=== PATIENT | female | born 1945 | race Caucasian/White ===

== ENCOUNTER 2019-06-20 13:11 | Outpatient (CLI) | payer OTHER, SELFPAY ==
--- NOTE | ~2019-06-20 | CT_ITS ---
EXAMINATION: CT abdomen pelvis wo con EXAM DATE: 06/20/2019 13:35 INDICATION: Right-sided kidney cancer. TECHNIQUE: Spiral CT of the abdomen and pelvis was performed without contrast. Axial, coronal and sag ittal images were reviewed. The dose-length product (DLP) for this examination was 1330.84 mGy-cm. The exposure was tailored according to patient size (auto mA exposure control), and iterative reconst ruction (ASIR) was used as additional dose reduction technique. Comparison is made to prior examinati on from 11/24/2018. FINDINGS: There is a right renal midpole mass measuring 5.6 x 4.8 x 6.2 cm, does not appear significa nt changed compared to prior study. Mild bilateral renal atrophy. There is no nephrolithiasis or hydr onephrosis. The uterus is not identified and has likely been surgically resected. The bladder is u nremarkable. The liver, spleen, adrenal glands and pancreas are unremarkable. There are cholecystec davis clips. There is no retroperitoneal or pelvic lymphadenopathy. Small umbilical fat-containing hernia. The appendix is normal. The stomach and small bowel are unremarkable. There is mild scattered coloni c diverticulosis. There is no adjacent inflammatory change to suggest diverticulitis. There is expec claudia amount of colonic stool. No free intraperitoneal gas. The heart is normal in size. There are no pericardial or pleural effusions. There is a right middle lobe 6 mm nodule, left lower lobe 5 mm nodule unchanged. There are no osteoblastic or osteolytic lesions identified. IMPRESSION: 1. Right renal mass most likely renal cell cancer, unchanged in size. 2. Right and left basilar nodules, unchanged. Granulomas or metastatic. Reviewed, dictated and finalized at location A.
== END 2019-06-20 13:12 | disposition home or self-care (01) ==
PROVIDERS: PCP Family Medicine; Visit Provider Urology
DX: D41.01 Neoplasm of uncertain behavior of right kidney (principal); R91.8 Other nonspecific abnormal finding of lung field
CPT/HCPCS: 74176

== ENCOUNTER 2020-01-04 13:38 | Outpatient (CLI) | payer OTHER, SELFPAY ==
--- NOTE | ~2020-01-04 | CT_ITS ---
EXAMINATION: CT abdomen pelvis wo con DATE: 01/04/2020 14:18 INDICATION: Right kidney cancer TECHNIQUE: Computed tomography (CT) of the abdomen and pelvis was performed without intravenous contr ast. The dose-length product (DLP) was 1223.15 mGy-cm. Automated exposure control and iterative recon struction technique were employed. COMPARISON: 06/20/2019, 11/24/2018 FINDINGS: Stable 6 mm pulmonary nodules are present in the right middle lobe and the left lower lobe. There are also stable nodules of the right lower lobe measuring 5 mm and 3 mm. No new nodules are id entified in the visualized lung bases. The heart size is normal. The gallbladder is surgically absent . The liver, spleen, pancreas, and adrenal glands are normal. There is a small sliding hiatal hernia. An approximately 5.3 x 5.2 cm mass of the right kidney demonstrates slow increase in size since the 2018 comparison. The left kidney is unremarkable. No pathologically enlarged abdominal or pelvic lymp h nodes are identified. There is no free intraperitoneal gas or evidence of bowel obstruction. A fat- containing umbilical hernia is noted. There is mild lumbar spondylosis. IMPRESSION: 1. Right kidney mass with slow increase in size, consistent with renal cell carcinoma. 2. Stable nodules of the visualized lung bases, consistent with granulomatous disease versus metastat ic disease. Reviewed, dictated and finalized at location A. IMPRESSION: 1. Right kidney mass with slow increase in size, consistent with renal cell car cinoma. 2. Stable nodules of the visualized lung bases, consistent with granulomatous d isease versus metastatic disease.
== END 2020-01-04 13:39 | disposition home or self-care (01) ==
PROVIDERS: PCP Family Medicine; Visit Provider Urology
DX: D41.01 Neoplasm of uncertain behavior of right kidney (principal)
CPT/HCPCS: 74176

== ENCOUNTER 2020-07-09 17:21 | Outpatient (CLI) | payer OTHER, SELFPAY ==
--- NOTE | ~2020-07-09 | CT_ITS ---
EXAMINATION: CT abdomen pelvis wo con DATE: 07/09/2020 17:45 INDICATION: Right kidney neoplasm. TECHNIQUE: Computed tomography (CT) of the abdomen and pelvis was performed without intravenous contr ast. Automated exposure control and iterative reconstruction technique were employed. The dose-length product was 1228.68 mGy-cm. COMPARISON: CT abdomen and pelvis 01/04/2020, 06/17/18, ultrasound kidneys 06/17/2018 FINDINGS: The visualized portions of the lung bases demonstrate mild emphysema. There is mild bronchi ectasis bilaterally. There are 3 nodules in the lungs measuring up to 6 mm in right middle lobe. No p leural effusion. The heart size is normal. No pericardial effusion. The liver, spleen, pancreas, and adrenal glands are normal. There are changes of cholecystectomy. There is a 5.2 cm mass in right kidn ey. There is a 10 mm mass in left kidney. There is diverticulosis of the colon without evidence of di verticulitis. There are no dilated loops of bowel. The appendix is normal. There are no pathologicall y enlarged lymph nodes. There is no free intraperitoneal fluid. There is mild lumbar spondylosis. IMPRESSION: 1. Stable 5.2 cm mass in right kidney with vascular flow on the prior ultrasound, consistent with evin al cell carcinoma. 2. Stable 10 mm mass in left kidney, which may be a hemorrhagic cyst or less likely a neoplasm. 3. Pulmonary nodules measuring up to 6 mm, stable from 07/21/2018, consistent with granulomatous disea se or less likely metastatic disease. Reviewed, dictated and finalized at location A. IMPRESSION: 1. Stable 5.2 cm mass in right kidney with vascular flow on the prior ultrasoun d, consistent with renal cell carcinoma. 2. Stable 10 mm mass in left kidney, which may be a hemorrhagic cyst or less li shari a neoplasm. 3. Pulmonary nodules measuring up to 6 mm, stable from 07/21/2018, consistent wi th granulomatous disease or less likely metastatic disease.
== END 2020-07-09 17:22 | disposition home or self-care (01) ==
PROVIDERS: PCP Family Medicine; Visit Provider Urology
DX: D41.01 Neoplasm of uncertain behavior of right kidney (principal); R91.8 Other nonspecific abnormal finding of lung field; D41.02 Neoplasm of uncertain behavior of left kidney
CPT/HCPCS: 74176

== ENCOUNTER 2021-04-22 20:36 | Emergency (ER) | payer OTHER, SELFPAY ==
[2021-04-22 20:45] VITALS: BP 120/56; PULSE 94; RESP 20; TEMP 36.4; O2SAT 98
--- NOTE | 2021-04-22 21:22 | PC.NURSE ---
Sitting upright in wheelchair, no acute distress.
[2021-04-22 23:05] VITALS: BP 137/69; PULSE 92; RESP 20; O2SAT 94
--- NOTE | 2021-04-22 23:05 | ED.GENADULT ---
HPI - General Adult General Chief complaint: Weakness Stated complaint: COVID + INCREASING SOB Time Seen by Provider: 04/22/21 22:54 History of Present Illness HPI narrative: Patient 76-year-old female presents emergency department with chief complaint of I feel weak. The patient reports she was diagnosed with COVID-19 about a week ago reports that she has not having shortness of breath not having chest pain not having fevers she does feels a little rundown like she needs just rest the patient reports her is hospitalized with COVID-19 reports she think she is actually not doing too bad compared to everyone else the patient reports that she talked to her children who recommended that she come to the emergency department for evaluation because she might need antibiotics for her COVID. Related Data Home Medications Medication Instructions Recorded Confirmed furosemide 40 mg PO DAILY 04/23/19 02/20/21 Allergies Allergy/AdvReac Type Severity Reaction Status Date / Time codeine Allergy Unknown Itching Verified 03/11/21 13:31 egg Allergy Unknown Difficulty Verified 03/11/21 13:31 Breathing NSAIDS (Non-Steroidal Allergy Unknown Itching Verified 03/11/21 13:31 Anti-Inflamma Penicillins Allergy Unknown Itching Verified 03/11/21 13:31 Sulfa (Sulfonamide Allergy Unknown Itching Verified 03/11/21 13:31 Antibiotics) Review of Systems Review of Systems: A 10 system review of systems was completed on the patient and is negative except for what is stated in the HPI. Nursing and ancillary documentation was reviewed. PMFSH Family History Family History Mother Family history of Alzheimer's disease Family history of diabetes mellitus in first degree relative Family history of cataracts Hypertension Diabetes mellitus Family history of Parkinson's disease Father Family history of diabetes mellitus in first degree relative Family history of glaucoma Hypertension Family history of congestive heart failure Family history of hearing loss Diabetes mellitus Sibling Family history of coronary artery disease Social History Social History Smoking status: Former smoker Second hand tobacco smoke exposure: No Alcohol intake: never Substance use: never Substance use type: does not use Gender identity (if verbalized by the patient): Female Sexual Orientation (if Verbalized by the Patient): Straight or Heterosexual Exam Narrative: GENERAL: Well-appearing, well-nourished, and in no acute distress. HEAD: Normocephalic, atraumatic. EYES: PERRLA and EOMI. ENT: Nares clear, no rhinorrhea or epistaxis. Mucous membranes moist. NECK: Supple. CHEST: Clear to auscultation. No respiratory distress. HEART: Regular rate and rhythm. No murmur heard. Normal peripheral pulses. ABDOMEN: Soft, nontender, nondistended, normal active bowel sounds. EXTREMITIES: Normal range of motion. No edema. SKIN: Warm, dry, no rash. NEURO: No focal deficits. Alert and oriented x3. PSYCH: Normal mood and affect. Course Course Emergency Course: Patient was able to ambulate in the emergency department without difficulty the patient's room air saturation stayed at 91% with ambulation. Vital Signs Vital signs: Vital Signs Temperature 36.4 C 04/22/21 20:45 Pulse Rate 94 04/22/21 20:45 Respiratory Rate 20 04/22/21 20:45 Blood Pressure 120/56 L 04/22/21 20:45 Pulse Oximetry 98 04/22/21 20:45 Temperature 36.4 C 04/22/21 20:45 Pulse Rate 100 04/22/21 23:08 Respiratory Rate 18 04/22/21 23:08 Blood Pressure 109/97 H 04/22/21 23:08 Pulse Oximetry 93 04/22/21 23:08 Medical Decision Making Vital Signs Vital Signs: Vital Signs Temperature 36.4 C 04/22/21 20:45 Pulse Rate 94 04/22/21 20:45 Respiratory Rate 20 04/22/21 20:45 Blood Pressure 120/56 L 04/22/21
[2021-04-22 23:06] VITALS: BP 133/95; PULSE 94; RESP 18; O2SAT 93
[2021-04-22 23:08] VITALS: BP 109/97; PULSE 100; RESP 18; O2SAT 93
[2021-04-23 00:11] VITALS: BP 118/61; PULSE 96; RESP 18; O2SAT 94
== END 2021-04-23 00:09 | disposition home or self-care (01) ==
LOC: ANHED 23:31
PROVIDERS: Emergency Provider Emergency Medicine; PCP Family Medicine
DX: U07.1 COVID-19 (principal); Z87.891 Personal history of nicotine dependence; Z79.4 Long term (current) use of insulin
CPT/HCPCS: 99281

== ENCOUNTER 2022-01-16 15:58 | Outpatient (CLI) | payer OTHER, SELFPAY ==
--- NOTE | ~2022-01-16 | XR_ITS ---
XR ankle RT min 3V, XR foot RT min 3V 01/16/2022 16:38 (accession [id number]), 01/16/2022 16:37 (accession [id number]) Indication: Right ankle and foot pain Procedure: 4 views right ankle and 4 views right foot Comparison: 12/15/2017 Findings: There is a transverse fracture base of the fifth metatarsal. There is a degenerative calcan eal enthesophyte. Ankle mortise intact. Moderate diffuse soft tissue swelling. Osteopenia. Talar dome is normal. Mild polyarticular osteoarthritis. Lisfranc joint intact. Impression: 1: Transverse nondisplaced fracture base of the right fifth metatarsal. Reviewed, dictated and finalized at location A. Impression: 1: Transverse nondisplaced fracture base of the right fifth metatarsal. Impression: 1: Transverse nondisplaced fracture base of the right fifth metatarsal.
== END 2022-01-16 15:59 | disposition home or self-care (01) ==
LOC: ANHIMG 16:07
PROVIDERS: PCP Family Medicine; Visit Provider Physician Assistant
DX: S92.354A Nondisplaced fracture of fifth metatarsal bone, right foot, initial encounter for closed fracture (principal); X58.XXXA Exposure to other specified factors, initial encounter
CPT/HCPCS: 73610; 73630

== ENCOUNTER 2022-03-04 18:49 | Emergency (ER) | payer OTHER, SELFPAY ==
[2022-03-04] VITALS (12 sets, daily range): BP systolic 118–165; BP diastolic 49–74; PULSE 92–115; RESP 16–27; TEMP 37.3–39.2; O2SAT 97–100
[2022-03-04 19:08] LABS: Glucose Point of Care 348 mg/dl (65-105)
[2022-03-04 20:08] LABS: Alanine Aminotransferase 13 U/L (6-35); Albumin Level 3.7 g/dL (3.5-5.1); Alkaline Phosphatase 102 U/L (38-126); Anion Gap 6 mmol/L (8-16); Aspartate Amino Transferase 19 U/L (14-36); Bilirubin,Total 1.2 mg/dL (0.2-1.3); Blood Urea Nitrogen 13 mg/dL (7-17); Calcium 8.6 mg/dL (8.4-10.2); Carbon Dioxide 26 mmol/L (22-30); Chloride 97 mmol/L (98-107); Estimated Glomerular Filt Rate 40; Glucose 342 mg/dL (65-110); Potassium 4.1 mmol/L (3.4-5.0); Sodium 129 mmol/L (137-145)
[2022-03-04 20:16] LABS: Basophils Percent Auto 0.3 % (0.2-1.2); Hematocrit 38.4 % (37.0-47.0); Hemoglobin 12.7 g/dL (12.0-15.0); Immature Granulocyte Absolute 0.04 K/mm3 (0.00-0.031); Immature Granulocyte Percent A 0.5 % (0-0.5); Immature Platelet Fraction Pct 6.5 % (0.9-11.2); Lymphocytes Absolute Auto 0.33 K/mm3 (0.9-3.2); Lymphocytes Percent Auto 3.8 % (18.3-44.2); Mean Corpuscular HGB Conc 33.1 g/dl (32-36); Mean Corpuscular Hemoglobin 28.9 pg (26-34); Mean Corpuscular Volume 87.5 fl (80-100); Mean Platelet Volume 11.5 fl (7.4-10.4); Monocytes Absolute Auto 0.6 K/mm3 (0.1-0.6); Monocytes Percent Auto 6.7 % (2.6-8.5); Neutrophils Absolute Auto 7.7 K/mm3 (1.3-6.7); Neutrophils Percent Auto 88.7 % (45.5-73.1); Platelet Count Result 133 k/mm3 (150-375); Red Blood Count 4.39 M/mm3 (4.2-5.4); Red Cell Distribution Width 13.7 % (11.5-14.5); White Blood Count 8.7 K/mm3 (4.5-10.0)
[2022-03-04 20:33] LABS: Platelet Estimate Decreased (Adequate)
[2022-03-04 20:34] LABS: Ovalocytes 1+ (NORMAL); Schistocytes None Seen (NORMAL)
[2022-03-04 20:47] LABS: Appearance Urine Slightly Cloudy (Clear); Bilirubin Urine Negative (Negative); Blood Urine Trace-lysed (Negative); Color Urine Yellow (Yellow); Glucose Urine UA 3+ mg/dL (Negative); Ketones Urine Trace mg/dL (Negative); Leukocyte Esterase Ur Trace LEU/UL (Negative); Nitrate Urine Positive (Negative); Protein Urine 1+ mg/dL (Negative); Specific Grav Ur 1.015 (1.001-1.035); pH Urine 5.5 (5.0-9.0)
[2022-03-04 20:50] LABS: Influenza A QL RT-PCR Negative (Negative); Influenza B QL RT-PCR Negative (Negative); SARS-CoV-2 RNA PCR Negative
[2022-03-04 20:52] LABS: Bacteria Urine 1+ /hpf; Mucus Urine Rare /lpf; RBC Urine 0-2 /hpf (0-2); Squamous Epithelial Cell Urine Rare /hpf (Few); WBC Urine 21-30 /hpf
[2022-03-04 20:53] LABS: Add Urine Microscopic? YES
--- NOTE | 2022-03-04 21:18 | ED.AMS ---
HPI - Altered Mental Status General Chief Complaint: Altered Mental Status Stated Complaint: ALT MENTAL STATUS THIS AFTERNOON Time Seen by Provider: 03/04/22 19:33 History of Present Illness HPI narrative: 76-year-old female presenting to the emergency department for evaluation of mental status and increased sleepiness. Patient states that yesterday she was feeling weak. Family states that earlier in the day she had some minor confusion that they now feel is improving. Patient denies any associated chest pain or shortness of breath. Patient denies any associated nausea vomiting diarrhea. Patient denies any abdominal pain. Patient also denies any pain with urination. Related Data Home Medications Medication Instructions Recorded Confirmed furosemide 40 mg tablet 40 mg PO DAILY 04/23/19 01/30/22 Allergies Allergy/AdvReac Type Severity Reaction Status Date / Time codeine Allergy Unknown Itching Verified 02/20/22 15:05 egg Allergy Unknown Difficulty Verified 02/20/22 15:05 Breathing hydrocodone Allergy Unknown Itching Verified 02/20/22 15:05 NSAIDS (Non-Steroidal Allergy Unknown Itching Verified 02/20/22 15:05 Anti-Inflamma Penicillins Allergy Unknown Itching Verified 02/20/22 15:05 Sulfa (Sulfonamide Allergy Unknown Itching Verified 02/20/22 15:05 Antibiotics) Review of Systems Review of Systems: CONSTITUTIONAL: See HPI EYES: Denies visual changes, redness, or discharge. ENT: Denies rhinorrhea, congestion, sore throat, or otalgia. CARDIOVASCULAR: Denies chest pain, palpitations, or edema. RESPIRATORY: Denies cough or dyspnea. GASTROINTESTINAL: Denies abdominal pain, nausea, vomiting, or diarrhea. GENITOURINARY: Denies dysuria or hematuria. SKIN: Denies rash or itching. MUSCULOSKELETAL: Denies back pain, joint pain, or myalgia. NEUROLOGIC: Denies headache, numbness, or weakness. [facility] Past Medical History Medical History Acute cystitis without hematuria Cellulitis of left leg Chronic kidney disease, stage III (moderate) Depression Essential hypertension Gout History of bruising easily History of stress test Hyperlipidemia, unspecified Long-term insulin use Major depressive disorder, single episode, moderate Non-pressure chronic ulcer of skin of other sites with unspecified severity Other psoriatic arthropathy Peripheral vascular disease Psoriasis Psoriatic arthropathy Pure hypercholesterolemia Renal cell carcinoma Renal insufficiency, mild Shingles (herpes zoster) polyneuropathy Type 2 diabetes mellitus with hyperglycemia Ulcer of left lower extremity, limited to breakdown of skin Unspecified osteoarthritis, unspecified site Unstable gait Venous insufficiency of both lower extremities Venous stasis ulcer Vitamin D deficiency Surgical History Surgical History History of cholecystectomy History of knee surgery right knee Family History Family History Mother Family history of Alzheimer's disease Family history of diabetes mellitus in first degree relative Family history of cataracts Hypertension Diabetes mellitus Family history of Parkinson's disease Father Family history of diabetes mellitus in first degree relative Family history of glaucoma Hypertension Family history of congestive heart failure Family history of hearing loss Diabetes mellitus Sibling Family history of coronary artery disease Social History Social History Smoking status: Never smoker Second hand tobacco smoke exposure: No Alcohol intake: never Substance use: never Substance use type: does not use Lack of Transportation: No Lack of Food: Never True Current Housing: I Have Housing Concerned About Future Housing: No Difficulty Paying Gas/Electric Bills
[2022-03-04] MEDS: levoFLOXacin 500 MG/D5W 100 ML 500 MG/100 ML BAG 100 MG IVPB (22:23)
--- NOTE | 2022-03-04 22:56 | PC.NURSE ---
Assumed pt care from Cindy Meyers RN
== END 2022-03-04 23:45 | disposition home or self-care (01) ==
PROVIDERS: Emergency Provider Emergency Medicine; PCP Family Medicine
DX: N39.0 Urinary tract infection, site not specified (principal); Z20.822 Contact with and (suspected) exposure to COVID-19; I12.9 Hypertensive chronic kidney disease with stage 1 through stage 4 chronic kidney disease, or unspecified chronic kidney disease; E11.22 Type 2 diabetes mellitus with diabetic chronic kidney disease; N18.30 Chronic kidney disease, stage 3 unspecified; F32.9 Major depressive disorder, single episode, unspecified; Z79.4 Long term (current) use of insulin; E78.5 Hyperlipidemia, unspecified; M19.90 Unspecified osteoarthritis, unspecified site
CPT/HCPCS: 36415; 51701; 80053; 81001; 82948; 85025; 85055; 87040; 87077; 87086; 87186; 87636; 96365; 96375; 99284; J0131; J1956

== ENCOUNTER 2022-09-24 15:44 | Outpatient (CLI) | payer OTHER, SELFPAY ==
--- NOTE | ~2022-09-24 | US_ITS ---
Thyroid ultrasound. Clinical History: Goiter Findings: Real-time sonography of the thyroid gland was performed. The right lobe measures 4.5 x 2.9 x 2.9 cm. The left lobe measures 3.6 x 1.5 x 1.3 cm. The isthmus is 4 mm in AP diameter. There is a solid, heterogeneous, predominantly hyperechoic nodule in the right thyroid lobe measuring 3.3 x 3.6 x 2.5 cm. There is a 5 mm cystic nodule at the left upper pole. There is a 1.6 x 0.7 x 1.1 cm hypoechoic circum scribed nodule at the left midpole with probable punctate foci of hyperechogenicity. Impression: 3.6 cm TR-3 lesion in the right thyroid lobe. FNA recommended to establish a histologic diagnosis giv en size. 1.6 cm TR-5 nodule in the left thyroid lobe. FNA recommended to establish a histologic diagnosis. Reviewed, dictated and finalized at [facility]. Impression: 3.6 cm TR-3 lesion in the right thyroid lobe. FNA recommended to establish a hi stologic diagnosis given size. 1.6 cm TR-5 nodule in the left thyroid lobe. FNA recommended to establish a his tologic diagnosis.
== END 2022-09-24 15:45 | disposition home or self-care (01) ==
LOC: ANHIMG 18:18
PROVIDERS: PCP Family Medicine; Visit Provider Internal Medicine Endocrinology, Diabetes & Metabolism
DX: E04.9 Nontoxic goiter, unspecified (principal)
CPT/HCPCS: 76536

== ENCOUNTER 2023-11-06 16:58 | Outpatient (CLI) | payer OTHER, SELFPAY ==
--- NOTE | ~2023-11-06 | US_ITS ---
EXAMINATION: US renal BI DATE: 11/06/2023 18:16 INDICATION: Known renal cell carcinoma TECHNIQUE: Multiple grayscale and Doppler ultrasound images of the kidneys were obtained. COMPARISON: CT abdomen pelvis 07/09/2020 FINDINGS: The right kidney measures 12.1 x 7.3 x 5.3 cm. The left kidney measures 9.4 x 4.6 x 4.2 cm. The kidne ys demonstrate normal parenchymal echogenicity. 6.7 cm right inferior pole renal mass. Mostly anechoi c 1.2 cm left renal cyst with small area of septation/wall thickening anteriorly. There is no hydrone phrosis. The bladder is normal. IMPRESSION: 6.7 cm right inferior pole mass. The left renal mass described in the prior CT is unchanged and appears mostly anechoic, likely resolv ing hemorrhagic or proteinaceous cyst. Attention on follow-up examinations. Reviewed, dictated and finalized at location K. IMPRESSION: 6.7 cm right inferior pole mass. The left renal mass described in the prior CT is unchanged and appears mostly a nechoic, likely resolving hemorrhagic or proteinaceous cyst. Attention on follo w-up examinations.
== END 2023-11-06 16:59 | disposition home or self-care (01) ==
PROVIDERS: PCP Family Medicine; Visit Provider Urology
DX: D41.01 Neoplasm of uncertain behavior of right kidney (principal)
CPT/HCPCS: 76775

== ENCOUNTER 2023-11-09 17:08 | Outpatient (CLI) | payer OTHER, SELFPAY ==
--- NOTE | ~2023-11-09 | US_ITS ---
EXAMINATION: US thyroid DATE: 11/09/2023 18:14 INDICATION: Nontoxic single thyroid nodule TECHNIQUE: Multiple ultrasound images of the thyroid were obtained. COMPARISON: None. FINDINGS: The right thyroid lobe measures 4.4 x 2.7 x 3.1 cm. The left thyroid lobe measures 3.3 x 1.3 x 1.2 c m. Thyroid isthmus measures 4-5 mm in thickness. 3.0 x 2.7 x 3.2 cm wider than tall solid isoechoic h ypoechoic nodule with lobular margins and without echogenic foci (TI-RADS 4, moderately suspicious , FNA if >=1.5 cm, annual followup is >=1 cm) in the right thyroid lobe. This is decreased in size sinc e the prior study at which time it measured 3.6 x 3.3 x 2.5 cm. No significant change in a 1.5 cm wid er than tall solid very hypoechoic nodules with tiny echogenic foci in the left thyroid lobe (TI-RADS 5, highly suspicious , FNA if >=1.0 cm, annual followup is >0.5 cm). 5 mm TI-RADS 1 cystic nodule in the left thyroid lobe. IMPRESSION: 1. Multinodular goiter. Recommend ultrasound-guided biopsy of the 1.5 cm TI RADS 5 left thyroid nodul e and would also consider ultrasound guided biopsy of the 3.2 cm TI RADS 4 nodule despite the apparen t slight interval decrease in size. Reviewed, dictated and finalized at location A. IMPRESSION: 1. Multinodular goiter. Recommend ultrasound-guided biopsy of the 1.5 cm TI RAD S 5 left thyroid nodule and would also consider ultrasound guided biopsy of the 3.2 cm TI RADS 4 nodule despite the apparent slight interval decrease in size.
== END 2023-11-09 17:09 | disposition home or self-care (01) ==
PROVIDERS: PCP Family Medicine; Visit Provider Internal Medicine Endocrinology, Diabetes & Metabolism
DX: E04.2 Nontoxic multinodular goiter (principal)
CPT/HCPCS: 76536

== ENCOUNTER 2024-09-23 14:01 | Outpatient (CLI) | payer OTHER, SELFPAY ==
--- NOTE | ~2024-09-23 | US_ITS ---
Thyroid ultrasound. Clinical History: Type 2 diabetes COMPARISON: 11/09/2023 Findings: Real-time sonography of the thyroid gland was performed. The right lobe measures 4.5 x 2.8 x 2.9 cm. The left lobe measures 4.5 x 1.8 x 1.3 cm. The isthmus is 4 mm in AP diameter. There is a dominant solid right thyroid lobe nodule measuring 3.4 x 2.2 x 2.8 cm, with mild heterogen eity. There are cystic nodules in the left thyroid lobe. There is a 1.6 x 0.8 x 1.2 cm hypoechoic ghada id nodule at the left midpole anteriorly. Impression: Bilateral thyroid nodules, as detailed above, without significant change from prior exam.. Reviewed, dictated and finalized at location M. Impression: Bilateral thyroid nodules, as detailed above, without significant change from p rior exam..
--- OUTSIDE RECORDS SUMMARY | 2024-09-23 14:08 | XMS_ITS | Clinical Summary ---
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 Role Phone Jomar Rosa MD Primary Care Provider [phone] Allergies Active Allergy Reactions Criticality Noted Date Comments Codeine Hives,Rash Low Reaction: HIVES, Reaction: Rash, , Egg-Derived Products Nsaids Penicillins Hives,Rash Low Reaction: HIVES, Reaction: Rash, , Sulfa Antibiotics Medications ergocalciferol (VITAMIN D-2) 27377 units capsule 1 every week 0 05/23/2018 Active insulin aspart (NOVOLOG) 100 UNIT/ML injection as directed 0 05/23/2018 Active insulin glargine (LANTUS) 100 UNIT/ML injection as directed 0 05/23/2018 Active amitriptyline (ELAVIL) 150 MG tablet 1 qhs 0 05/23/2018 Active omeprazole (PriLOSEC) [address] capsule 1 qday 0 05/23/2018 Activ e pravastatin (PRAVACHOL) 40 MG tablet 1 qday 0 05/23/2018 Active orlistat (XENICAL) 120 MG capsule 1 tid 0 05/23/2018 Active fluticasone (FLONASE ALLERGY RELIEF) 50 MCG/ACT nasal spray as directed 0 05/23/2018 Activ e allopurinol (ZYLOPRIM) 100 MG tablet 100 mg 03/17/2007 Active Calcium Carb-Cholecalci ferol (OS-RIKY EXTRA D3) 500-600 MG-UNIT tablet take 1 tablet twice a day 10/01/2010 Active hydroCHLOROthia zide (HYDRODIURIL) 12.5 MG tablet 06/14/2019 Acti ve hydrocortisone 2.5 % cream 06/14/2019 Active BD INSULIN SYRINGE U/F 31G X /16 1 ML misc 08/14/2019 Active losartan (COZAAR) 50 MG tablet 06/14/2019 Active halobetasol (ULTRAVATE) 0.05 % ointment 10/03/2019 Act neva sertraline (ZOLOFT) 100 MG tablet Take 100 mg by mouth 1 (one) time each day 11/16/2019 Active Contour Test test strip USE TO TEST BLOOD SUGAR 3 TIMES DAILY DIRECTED 05/01/2021 Active furosemide (LASIX) 40 MG tablet TAKE 1 TABLET BY MOUTH EVERY DAY 90 tablet 3 02/10/2022 Active Active Problems Problem Noted Date Diagnosed Date Chronic kidney disease, stage 3 (moderate) 05/24 Hypertensive chronic kidney disease with stage 1 through stage 4 chronic kidney disease, or unspecified chronic kidney disease 05/24/2018 Type 2 diabetes mellitus wit h other diabetic kidney complication 05/24/2018 Arthropathic psoriasis 05/24/2018 Mixed hyperlipidemia 05/24/2018 Idiopathic gout of multiple sites 05/24/2018 Other specified depressive episode 05/24/2018 Primary generalized osteoarthritis 05/24/2018 Other specified disorder of vein 05/24/2018 Hypertension 08/27/2013 Overview (12/24/2020): HYPERTENSION NOS Pure hypercholesterolemia 08/27/2013 Overview (12/24/2020): PURE HYPERCHOLESTEROLEM Type 2 diabetes mellitus 08/27/2013 Overview (12/24/2020): DMII WO CMP UNCNTRLD Vitamin D deficiency 08/27/2013 Overview (12/24/2020): VITAMIN D DEFICIENCY NOS Family History Medical History Relation Comments Kidney disease Neg Hx Kidney stone Neg Hx Social History Tobacco Use Types Packs/Day Years Used Date Smoking Tobacco: Never Smokeless Tobacco: Never Alcohol Use Standard Drinks/Week Comments No 0 (1 standard drink = 0.6 oz pur e alcohol) Comments Unknown Sex and Gender Information Value Date Recorded Sex Assigned at Not on file Legal Sex Female 7:36 AM MST Gender Identity Not on file Sexual Orientation Not on file Last Filed Vital Signs Vital Sign Reading Time Taken Comments Blood Pressure 134/78 07/01/2021 2:48 PM CDT Pulse - - Temperature 36.4 C (97.5 F) 07/01/2021 2:48 PM CDT Respiratory Rate 18 07/01/2021 2:48 PM CDT Oxygen Saturation - - Inhaled Oxygen Concentration - - Weight 93.4 kg (206 lb) 07/01/2021 2:48 PM CDT Height 162.6 cm (5' 4) 07/01/2021 2:48 PM CDT Body Mass Index 35.36 07/01/2021 2:48 PM CDT Plan of Treatment Health Maintenance Due Date Last Done Comments Pneumococcal PPSV23/PCV13 65 + Years / Low and Medium Risk (1 of 4 - PCV) 1996 Influenza Vaccine (Season Ended) [address] [facility] MEDICARE HMO Care Teams Interior Surface Insulation Worker Relationship Specialty Start Date End Date Jomar Rosa MD [id number] [place] [id number] PCP - General Internal Medicine 11/25/18
== END 2024-09-23 14:02 | disposition home or self-care (01) ==
PROVIDERS: PCP Family Medicine; Visit Provider Nurse Practitioner Family
DX: E11.65 Type 2 diabetes mellitus with hyperglycemia (principal); E78.5 Hyperlipidemia, unspecified; I10 Essential (primary) hypertension; Z79.4 Long term (current) use of insulin; E04.2 Nontoxic multinodular goiter
CPT/HCPCS: 76536